=== PATIENT | female | born 2000 | race Caucasian/White ===

== ENCOUNTER 2020-03-22 06:20 | Emergency (ER) | payer OTHER ==
[~2020-03-22] VITALS: Ht 165.1 cm; Wt 100.0 kg
[2020-03-22 06:42] VITALS: BP 138/96; TEMP 98.1
[2020-03-22 09:21] LABS: STREP SCREEN NEGATIVE
[2020-03-22 11:28] VITALS: PULSE 85
== END 2020-03-22 11:28 | disposition home or self-care (01) ==
LOC: COL.ER 06:20
PROVIDERS: Emergency Medicine
DX: J06.9 Acute upper respiratory infection, unspecified (principal); Z20.828 Contact with and (suspected) exposure to other viral communicable diseases